=== PATIENT | female | born 1960 | race Two or more races ===

== ENCOUNTER 2021-12-27 06:28 | Day surgery (SDC) | payer OTHER ==
[~2021-12-27 06:28] MED LIST: ZESTRIL20 MG PO
== END 2021-12-27 17:25 | disposition home or self-care (01) ==
LOC: CIR.AMB 06:28
PROVIDERS: ATTEND Obstetrics & Gynecology Gynecologic Oncology
DX: N72 Inflammatory disease of cervix uteri (principal); C53.9 Malignant neoplasm of cervix uteri, unspecified; Z91.041 Radiographic dye allergy status; I10 Essential (primary) hypertension; F17.210 Nicotine dependence, cigarettes, uncomplicated; Z71.6 Tobacco abuse counseling; F41.9 Anxiety disorder, unspecified; E66.9 Obesity, unspecified